=== PATIENT | male | born 1970 | race African-American/Black ===

== ENCOUNTER 2017-07-22 22:12 | Emergency (ER) | payer MEDICAID ==
[~2017-07-22] VITALS: Ht 167.6 cm; Wt 87.0 kg
[2017-07-22] MEDS ORDERED: KETOROLAC 30MG/ML VIAL IM ONE (23:45)
[2017-07-22] MEDS ORDERED: MORPHINE SULFATE 10 MG/ML CPJ IM ONE (23:45)
[2017-07-23 02:55] VITALS: BP 127/67
== END 2017-07-23 03:02 | disposition home or self-care (01) ==
LOC: ER 22:24
DX: S02.652A Fracture of angle of left mandible, initial encounter for closed fracture (principal); F17.200 Nicotine dependence, unspecified, uncomplicated; Y08.02XA Assault by strike by baseball bat, initial encounter; Y93.89 Activity, other specified; Y92.89 Other specified places as the place of occurrence of the external cause; Y99.8 Other external cause status
CPT/HCPCS: 70450; 70486; 96372; 99284; J1885; J2270; Z7610

== ENCOUNTER 2017-07-31 00:26 | Emergency (ER) | payer MEDICAID ==
[~2017-07-31] VITALS: Ht 175.3 cm; Wt 91.0 kg
[2017-07-31] MEDS ORDERED: KETOROLAC 30MG/ML VIAL IM ONE (03:45)
[2017-07-31] MEDS ORDERED: ONDANSETRON 4MG ODT PO PRN (03:45)
[2017-07-31 06:10] VITALS: BP 137/81
== END 2017-07-31 06:42 | disposition home or self-care (01) ==
LOC: ER 00:26
DX: M54.5 Low back pain (principal); R68.84 Jaw pain; M47.895 Other spondylosis, thoracolumbar region; Z87.81 Personal history of (healed) traumatic fracture; Z98.890 Other specified postprocedural states; W01.0XXA Fall on same level from slipping, tripping and stumbling without subsequent striking against object, initial encounter; Y93.89 Activity, other specified; Y92.018 Other place in single-family (private) house as the place of occurrence of the external cause
CPT/HCPCS: 72100; 96372; 99284; J1885; Q0162

== ENCOUNTER 2020-07-13 17:39 | Emergency (ER) | payer MEDICAID ==
[~2020-07-13] VITALS: Ht 175.3 cm; Wt 110.0 kg
[2020-07-13] MEDS ORDERED: HYDROCODONE/ACETAMINOPHEN 5/325MG TABLET PO ONE (18:30)
[2020-07-13] MEDS ORDERED: LIDOCAINE HCL 1% 20ML VIAL (Pyxis) INJ INFIL ONE (18:30)
[2020-07-13] MEDS ORDERED: KETOROLAC 30MG/ML VIAL IM ONE (18:30)
[2020-07-13 20:19] VITALS: BP 133/87
== END 2020-07-13 20:21 | disposition home or self-care (01) ==
LOC: ER 17:39
DX: S12.590A Other displaced fracture of sixth cervical vertebra, initial encounter for closed fracture (principal); X58.XXXA Exposure to other specified factors, initial encounter; Y93.89 Activity, other specified; Y92.89 Other specified places as the place of occurrence of the external cause; Y99.8 Other external cause status; I10 Essential (primary) hypertension; L03.019 Cellulitis of unspecified finger
CPT/HCPCS: 10060; 93005; 96372; 99283; J1885; J3490